=== PATIENT | male | born 1970 | race Caucasian/White ===

== ENCOUNTER 2020-06-27 18:22 | Emergency (ER) | payer BC ==
[~2020-06-27] VITALS: Ht 180.3 cm; Wt 87.0 kg
[2020-06-27 19:54] VITALS: BP 115/77
--- NOTE | 2020-06-27 19:57 | NUR ---
PT STATES CUT TIP OF MIDDLE FINGER WHILE COOKING DINNER TONIGHT.
[2020-06-27] MEDS ORDERED: LIDOCAINE-MPF 1%, 5ML INFIL ONE (21:00)
[2020-06-27] MEDS ORDERED: DIPH,PERTUSS(ACELL),TET VAC/PF 0.5 ML IM-VACC ONE ×2 (21:00→21:05)
[2020-06-27] MEDS ORDERED: LIDOCAINE-MPF 1%, 5ML ONE (21:05)
== END 2020-06-27 23:14 | disposition home or self-care (01) ==
LOC: ED 21:57
DX: S61.312A Laceration without foreign body of right middle finger with damage to nail, initial encounter (principal); Z89.021 Acquired absence of right finger(s); X58.XXXA Exposure to other specified factors, initial encounter; Y93.89 Activity, other specified; Y92.009 Unspecified place in unspecified non-institutional (private) residence as the place of occurrence of the external cause; Y99.8 Other external cause status
CPT/HCPCS: 64450; 90471; 90715